=== PATIENT | female | born 1975 | race Caucasian/White ===

== ENCOUNTER → 2017-04-09 | Outpatient (CLI) | payer OTHER ==
[~2017-04-09] MED LIST: Z.0.NO CURRENT MEDS
[2017-04-09 11:54] LABS: AUTOMATED NEUTROPHIL # 3.8 TH/MM3 (1.8-7.7); BASOPHIL % 0.5 % (0.0-2.0); EOSINOPHIL # 0.2 TH/MM3 (0-0.4); EOSINOPHIL % 2.9 % (0.0-4.0); HEMATOCRIT 41.5 % (35.0-46.0); HEMO FLAGS DIFF FINAL; LYMPHOCYTE # 1.8 TH/MM3 (1.0-4.8); MEAN CELL VOLUME 92.6 FL (80.0-100.0); MEAN CORPUSCULAR HEMOGLOBIN 30.2 PG (27.0-34.0); MEAN CORPUSCULAR HGB CONC 32.6 % (32.0-36.0); MONO % 6.3 % (0.0-8.0); NEUT % 61.3 % (16.0-70.0); PLATELET COUNT 280 TH/MM3 (150-450); RED BLOOD COUNT 4.48 MIL/MM3 (4.00-5.30); RED CELL DISTRIBUTION WIDTH 12.9 % (11.6-17.2); WHITE BLOOD COUNT 6.2 TH/MM3 (4.0-11.0)
[2017-04-09 12:05] LABS: ALT (GPT) 29 U/L (10-53); ANION GAP 6 MEQ/L (5-15); AST (GOT) 13 U/L (15-37); BICARBONATE 25.5 MEQ/L (21.0-32.0); BLOOD UREA NITROGEN 15 MG/DL (7-18); CHLORIDE 108 MEQ/L (98-107); GLOMERULAR FILTRATION RATE 98 ML/MIN (>89); GLUCOSE,FASTING 98 MG/DL (74-99); POTASSIUM 4.2 MEQ/L (3.5-5.1); SODIUM (NA) 139 MEQ/L (136-145)
[2017-04-09 12:15] LABS: ALKALINE PHOSPHATASE 54 U/L (45-117); HDL CHOLESTEROL 43.9 MG/DL (40.0-60.0); LDL CHOLESTEROL 166 MG/DL (0-99); TOTAL BILIRUBIN ADULT 0.3 MG/DL (0.2-1.0)
== END ==
LOC: ELAB 09:31
PROVIDERS: ATTEND Family Medicine
DX: F50.2 Bulimia nervosa (principal); R73.9 Hyperglycemia, unspecified; I10 Essential (primary) hypertension; E55.9 Vitamin D deficiency, unspecified; E78.5 Hyperlipidemia, unspecified; Z68.29 Body mass index [BMI] 29.0-29.9, adult
CPT/HCPCS: 36415; 80053; 80061; 82306; 84443; 85025

== ENCOUNTER 2017-04-16 13:32 | Emergency (ER) | payer OTHER ==
[~2017-04-16] VITALS: Ht 162.6 cm; Wt 75.0 kg
[2017-04-16 13:33] VITALS: BP 162/100; PULSE 104; RESP 20; TEMP 98.9; O2SAT 98
--- NOTE | 2017-04-16 19:15 | PD ---
HPI Chief Complaint: Eye Problems/Injury Time Seen by Provider: 18:21 Travel History International Travel<30 days: No Contact w/Intl Traveler<30days: No Traveled to known affect area: No History of Present Illness HPI Patient is a 41-year-old female presenting to emergency for evaluation of forgetfulness. Patient states this morning she started having periods where she could not complete her thoughts. Patient states that she's not been thinking right. She called her primary doctor this morning and was sent to the emergency department for evaluation. Patient also presented complaining of left eye pain and visual changes however this is a chronic issue has been ongoing for the last 8 months. Patient is closely followed by [facility] eye. Patient has also been referred to [facility] ophthalmology for further evaluation, she has an appointment in April. She has no new issues associated with her eye today. She denies any headache, weakness, slurred speech, gait abnormality. PFSH Past Medical History Anxiety: Yes Depression: Yes Cardiovascular Problems: Yes Diminished Hearing: No Hiatal Hernia: Yes Immunizations Current: No ?: Not LMP: 04/02/17 Past Surgical History Other Surgery: Yes (breast augmentation) Social History Alcohol Use: No Tobacco Use: No Substance Use: No Allergies-Medications (Allergen,Severity, Reaction): Coded Allergies: codeine (Unverified Allergy, Mild, SWELLING/FACIAL, 04/16/17) Reported Meds & Prescriptions Reported Meds & Active Scripts Active Reported No Current Meds (Miscellaneous Medication) Misc No Current Meds (Miscellaneous Medication) Misc Review of Systems Except as stated in HPI: all other systems reviewed are Neg Neurologic: Positive: Other (forgetfulness) Physical Exam Narrative GENERAL: Well-developed, well-nourished, alert female. Resting comfortably in no acute distress. SKIN: Warm and dry. HEAD: Atraumatic. Normocephalic. EYES: Pupils equal and round. No scleral icterus. No injection or drainage. ENT: No nasal bleeding or discharge. Mucous membranes pink and moist. NECK: Trachea midline. No JVD. CARDIOVASCULAR: Regular rate and rhythm. RESPIRATORY: No accessory muscle use. Clear to auscultation. Breath sounds equal bilaterally. GASTROINTESTINAL: Abdomen soft, non-tender, nondistended. Hepatic and splenic margins not palpable. MUSCULOSKELETAL: Extremities without clubbing, cyanosis, or edema. No obvious deformities. NEUROLOGICAL: Awake and alert. No obvious cranial nerve deficits. Motor grossly within normal limits. Five out of 5 muscle strength in the arms and legs. Normal speech. PSYCHIATRIC: Appropriate mood and affect; insight and judgment normal. Data Data Last Documented VS Vital Signs Date Time Temp Pulse Resp B/P (MAP) Pulse Ox O2 Delivery O2 Flow Rate FiO2 04/16/17 13:33 98.9 104 20 162/100 (120) 98 Room Air Orders Orders Ct Brain W/O Iv Contrast(Rout) (04/16/17 ) Ed Urine Pregnancytest Poc (04/16/17 18:19) MDM Medical Decision Making Medical Screen Exam Complete: Yes Emergency Medical Condition: Yes Interpretation(s) Vital Signs Date Time Temp Pulse Resp B/P (MAP) Pulse Ox O2 Delivery O2 Flow Rate FiO2 04/16/17 13:33 98.9 104 20 162/100 (120) 98 Room Air Differential Diagnosis ADHD versus forgetfulness versus TIA versus other Narrative Course Patient is a 41-year-old female that presented to emergency for evaluation of forgetfulness and memory issues. Patient is neurologically intact, her vital signs are stable. CT scan of the brain ordered and pending. 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 Patient was given a copy of her CT scan. She was encouraged to follow-up with her primary doctor. 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 She was advised to return to emergency department immediately for any new or worsening symptoms. Patient was reassured at this time that there were no acute findings identified. Patient verbalized understanding of these instructions. Patient stable for discharge. Diagnosis Primary Impression: Forgetfulness Referrals: Senior Radiation Protection Technician 2 days Primary Care Physician 2 days Patient Instructions: General Instructions Additional Instructions: Follow-up with her primary doctor in 1-2 days Follow-up with your professor of music as scheduled Return to the emergency department immediately for any new or worsening symptoms Med/Other Pt SpecificInfo: No Change to Meds Disposition: 01 DISCHARGE HOME Condition: Stable ZoltanMarilee INMAN Apr 16, 2017 19:15
--- NOTE | 2017-04-16 20:10 | RADRPT ---
EXAM DATE/TIME: 04/16/2017 19:52 [facility] COMPARISON: No previous studies available for comparison. INDICATIONS : Cephalgia. RADIATION DOSE: 31.77 CTDIvol (mGy) MEDICAL HISTORY : Cardiovascular disease. SURGICAL HISTORY : None. ENCOUNTER: Initial ACUITY: 1 day PAIN SCALE: 8/10 LOCATION: cranial TECHNIQUE: Multiple contiguous axial images were obtained of the head. Using automated exposure control and adj ustment of the mA and/or kV according to patient size, radiation dose was kept as low as reasonably a chievable to obtain optimal diagnostic quality images. DICOM format image data is available electro nically for review and comparison. FINDINGS: CEREBRUM: The ventricles are normal. There is a 10 mm cystic structure in the mesial right temporal lobe likely representing a choroidal fissure cyst, an incidental finding. No evidence of midline shift, mass le ailyn, hemorrhage or acute infarction. No extra-axial fluid collections are seen. POSTERIOR FOSSA: The cerebellum and brainstem demonstrate no acute finding. The 4th ventricle is midline. The cerebe llopontine angle is unremarkable. EXTRACRANIAL: The visualized portion of the orbits is intact. SKULL: The calvaria is intact. No evidence of skull fracture. CONCLUSION: 1. No acute intracranial abnormality is identified. 2. 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 Vasquez Choi MD on April 16, 2017 at 20:07 Board Certified Radiologist. This report was verified electronically.
[2017-04-16 21:17] VITALS: BP 160/102
== END 2017-04-16 21:53 | disposition home or self-care (01) ==
LOC: NEPD 13:32
DX: F06.8 Other specified mental disorders due to known physiological condition (principal); H57.12 Ocular pain, left eye
CPT/HCPCS: 70450; 84703; 99284

== ENCOUNTER → 2017-04-25 | Outpatient (CLI) | payer OTHER ==
[2017-04-25 18:28] LABS: ALT (GPT) 36 U/L (10-53); ANION GAP 7 MEQ/L (5-15); AST (GOT) 21 U/L (15-37); BICARBONATE 28.1 MEQ/L (21.0-32.0); BLOOD UREA NITROGEN 18 MG/DL (7-18); CHLORIDE 104 MEQ/L (98-107); GLOMERULAR FILTRATION RATE 100 ML/MIN (>89); POTASSIUM 4.3 MEQ/L (3.5-5.1); SODIUM (NA) 139 MEQ/L (136-145)
[2017-04-25 18:54] LABS: ALKALINE PHOSPHATASE 54 U/L (45-117); FREE T4 0.94 NG/DL (0.76-1.46); TOTAL BILIRUBIN ADULT 0.3 MG/DL (0.2-1.0)
== END ==
LOC: PLAB 13:22
PROVIDERS: ATTEND Psychiatry & Neurology Neurology
DX: R41.3 Other amnesia (principal)
CPT/HCPCS: 80053; 82607; 82746; 84439; 84443